=== PATIENT | male | born 1960 | race Caucasian/White ===

== ENCOUNTER 2024-02-09 02:15 | Emergency (ER) | payer OTHER, SELFPAY ==
[2024-02-09 02:16] VITALS: BP 203/109
--- NOTE | 2024-02-09 02:44 | ED.GENMED ---
History of Present Illness
<JOSE ARMANDO Fischer - Last Filed: 02/09/24 05:32>
General
Chief Complaint: Abdominal Pain
Source: patient and spouse
Exam Limitations: none
Time Seen by Provider: 02/09/24 02:31
Nursing documentation reviewed up to this point in time: agreed with
History of Present Illness
History of Present Illness:
Pt is a 63 y/o M with pmhx of kidney stones and paraesophageal hernia who presents with complaints of epigastric abdominal pain x3-4 hrs. The pain is rated a 5/10 in severity and is described as a constant dullness. There is no radiation of pain. He
has had 2-3 episodes of vomiting. He took tums at home but threw them up. The pt reported that he had eaten chicken parm at a sikh earlier that day and a frozen meal just prior to the onset of his pain. The pt was in obvious discomfort and was
unable to get comfortable. Denies back pain, fever, GOLDEN, SOB, hemoptysis, constipation, or diarrhea.
The pt has a pmhx of kidney stones over 10 years ago that he passed on his own. He reports that the symptoms that he has today might be similar but is unsure. The pt also reports that he has a history of multiple hernias. His last bowel movement was
earlier today.
Past History
<JOSE ARMANDO Fischer - Last Filed: 02/09/24 05:32>
Past History
ED Past Medical History: Other (Kidney stones)
ED Past Surgical History: Other (paraesophageal hernia repair)
Social History
Tobacco: Non-smoker
Alcohol: Daily
Drug: None
Personal:
Living: with family
Review of Systems
<JOSE ARMANDO Fischer - Last Filed: 02/09/24 05:32>
Review of Systems
Allergies reviewed?: Yes
Constitutional: Reports no symptoms
EENT: Reports no symptoms
Respiratory: Reports no symptoms
Cardiac: Reports no symptoms
ABD/GI: Reports abdominal pain, nausea and vomiting
: Reports no symptoms
Musculoskeletal: Reports no symptoms
Skin: Reports no symptoms
Neurological: Reports no symptoms
Endocrine: Reports no symptoms
Hematologic/Lymphatic: Reports no symptoms
Psychiatric: Reports no symptoms
Phy Exam
<JOSE ARMANDO Fischer - Last Filed: 02/09/24 05:32>
General Physical Exam
General Presentation: moderate distress
General age: appears stated age
General Skin: warm
General Habitus: normal
General Mental: alert
General Hydration: appears well hydrated
ENT Exam
ENT Exam: neck supple
Eye Exam
Eye Exam: cornea clear and conjunctiva normal
Cardiovascular Exam
Cardiovascular Exam: regular rate/rhythm and normal peripheral pulses
Pulmonary Exam
Pulmonary Exam: lungs clear and no respiratory distress
Gastrointestinal Exam
Gastrointestinal Exam: normal bowel sounds, distended, guarding and other (Guarding with Duran's. Negative rebound tenderness. Negative obturator sign. Negative Rovsing's sign. )
Palpation: left upper quadrant: Moderate tenderness, left lower quadrant: No tenderness, right upper quadrant: Moderate tenderness and right lower quadrant: No tenderness
Neurological Exam
Neurological Exam: alert, oriented x3, no motor deficits, normal reflexs, no sensory deficits and speech normal
Musculoskeletal Exam
Musculoskeletal Exam: full ROM and neuro vasc intact
Skin Exam
Skin Exam: normal color and warm/dry
Psychiatric Exam
Psychiatric Exam: normal mood/affect
Course
<JOSE ARMANDO Fischer - Last Filed: 02/09/24 05:32>
Orders/Labs/Results
Orders:
Orders
02/09/24 02:50
Electrocardiogram (*1) Urgent
Reason for Study: Abdominal Pain
EKG- Treatment ONCE
02/09/24 03:00
Complete Blood Count/With Diff Urgent
Comprehensive Metabolic Panel Urgent
Lipase Urgent
PTT Urgent
Prothrombin Time Urgent
Troponin I Urgent
Urinalysis Reflex To Culture Urgent
Date Specimen was Collected: 02/09/24
Time Specimen was Collected: 02:57
Abnormal Lab Results
02/09/24
03:00
RBC 4.67 L 10^6/uL
(4.70-6.10)
MCV 95.1 H fL
(80.0-94.0)
MCH 35.5 H pg
(27.0-31.0)
MCHC 37.4 H g/dL
(33.0-37.0)
Abs Immat Gran (auto) 0.1 H 10^3/uL
(0-0.05)
Absolute Monos (auto) 1.1 H 10^3/uL
(0.1-0.6)
Immature Gran % 0.6 H %
(0-0.5)
Monocytes % 13.6 H %
(1.7-9.3)
BUN 21 H mg/dl
(9-20)
Glucose 112 H mg/dl
(70-99)
Calcium 10.3 H mg/dl
(8.4-10.2)
02/09/24 03:00
02/09/24 03:00
Vital Signs
Initial and Last Documented VS:
Initial Vital Signs
Pulse Resp BP Pulse Ox
80 20 203/109 99
02/09/24 02:16 02/09/24 02:16 02/09/24 02:16 02/09/24 02:16
Last Documented Vital Signs
Temp Pulse Resp BP Pulse Ox
98.1 F 80 20 126/90 99
02/09/24 02:51 02/09/24 02:16 02/09/24 02:16 02/09/24 04:17 02/09/24 02:16
<Maldonado Bates, DO - Last Filed: 02/09/24 04:24>
Orders/Labs/Results
Orders:
Orders
02/09/24 02:50
Electrocardiogram (*1) Urgent
Reason for Study: Abdominal Pain
EKG- Treatment ONCE
02/09/24 03:00
Complete Blood Count/With Diff Urgent
Comprehensive Metabolic Panel Urgent
Lipase Urgent
PTT Urgent
Prothrombin Time Urgent
Troponin I Urgent
Urinalysis Reflex To Culture Urgent
Date Specimen was Collected: 02/09/24
Time Specimen was Collected: 02:57
Abnormal Lab Results
02/09/24
03:00
RBC 4.67 L 10^6/uL
(4.70-6.10)
MCV 95.1 H fL
(80.0-94.0)
MCH 35.5 H pg
(27.0-31.0)
MCHC 37.4 H g/dL
(33.0-37.0)
Abs Immat Gran (auto) 0.1 H 10^3/uL
(0-0.05)
Absolute Monos (auto) 1.1 H 10^3/uL
(0.1-0.6)
Immature Gran % 0.6 H %
(0-0.5)
Monocytes % 13.6 H %
(1.7-9.3)
BUN 21 H mg/dl
(9-20)
Glucose 112 H mg/dl
(70-99)
Calcium 10.3 H mg/dl
(8.4-10.2)
02/09/24 03:00
02/09/24 03:00
Vital Signs
Initial and Last Documented VS:
Initial Vital Signs
Pulse Resp BP Pulse Ox
80 20 203/109 99
02/09/24 02:16 02/09/24 02:16 02/09/24 02:16 02/09/24 02:16
Last Documented Vital Signs
Temp Pulse Resp BP Pulse Ox
98.1 F 80 20 126/90 99
02/09/24 02:51 02/09/24 02:16 02/09/24 02:16 02/09/24 04:17 02/09/24 02:16
<JOSE ARMANDO Fischer - Last Filed: 02/09/24 05:32>
MDM/Problems Addressed
Differential Diagnosis Includes:
Cholecystitis
Nephrolithiasis
Gastritis
<JOSE ARMANDO Fischer - Last Filed: 02/09/24 05:32>
*Critical Care Note
Total Time (30-74mins, 75-104mins- exclusive of procedures): Not Applicable
<Maldonado Bates DO - Last Filed: 02/09/24 04:24>
Update Note
Update Note:
02/09/2024 0421 AM: Shortly after my exam, patient stated that his symptoms resolved. I did order CT scan for further evaluation of his abdomen. Patient refused. He states that he has no chest pain or anginal equivalents. EKG was normal. Patient
does not wish to have any further testing at this point. He wishes to be discharged home. I did discuss the possibility of a missed diagnosis without a CT scan. Patient still wishes to be discharged home. We did discuss return to ER
instructions. He verbalized good understanding. Patient being discharged home in improved condition.
ED Attending Note
<JOSE ARMANDO Fischer - Last Filed: 02/09/24 05:32>
-
Portions of this chart may have been created with voice recognition software.� Occasional wrong word or��sound alike� substitutions may have occurred due to the inherent limitations of voice recognition software.
<Maldonado Bates DO - Last Filed: 02/09/24 04:24>
ED Attending Note
Patient seen and examined by attending physician: Yes
I performed the substantive portion of visit, reviewed & personally made and approve the management plan that is documented in note by myself or SOMMER.: Yes
ED Attending Note:
63-year-old male presents with upper abdominal pain that has been present for the last 4 to 5 hours. Patient states that at its worst the pain was 5 out of 10 and in the epigastrium. He states that vomiting seem to alleviate some of his pain.
Initially when the symptoms came on he took Tums but was unable to keep them down. Patient ate a frozen meal just prior to the onset of his symptoms. Patient does have a history of kidney stones but is unsure if this is similar pain. Patient
admits to drinking 2-3 beers per night during the week and a sixpack per night on the weekends. Patient was seen in conjunction with the PA student. I have reviewed and agree with the history and treatment plan presented. On my independent
physical exam, patient is awake, alert, and oriented x3 minimal to moderate acute epigastric pain. Heart is regular rate rhythm. No murmurs rubs or gallops. Lungs clear to auscultation bilaterally. Abdomen soft with minimal diffuse tenderness to
palpation. Negative McBurney's point tenderness. Negative Duran sign. Good bowel sounds x 4 quadrants. Skin is warm and dry. Patient moves all 4 extremities.
Will do lab work and reassess patient prior to ordering imaging.
Discharge Plan
Departure
Patient Disposition: Home (Routine Discharge)
Date of Disposition: 02/09/24
Time of Disposition: 04:21
Patient with high blood pressure during this ER visit?: Yes
Condition: Fair
Discharge Problem:
Abdominal pain
Instructions: Abdominal Pain, BLOOD PRESSURE
Referrals:
Carlyle Levin IV, MD [Family Provider] -
Activity Restrictions/Additional Instructions:
It was a pleasure meeting you and taking part in your care. We hope for your continued healing and wellness.
Please read discharge instructions in their entirety. However, they are for general education and may not describe your exact diagnosis at discharge. Information on your ER visit and medical conditions were discussed with you along with appropriate
follow up information...
If indicated, please take your medications as instructed and indicated on discharge paperwork.
Please schedule a follow up appointment as directed. Call to schedule an appointment
Please return to the emergency department with ANY change in, persisting, or worsening of symptoms. If any of your symptoms do not improve, or persist, or become more severe within 6-12 hours, please return to the emergency department for further
care.
Please return to the emergency department if you develop a headache, neck pain/stiffness, fever greater than 100.4F, chest pain, shortness of breath, persistent nausea, vomiting, slurred speech, difficulty walking, numbness/tingling, weakness, signs
of infection or any other symptoms that are worrisome to you.
If you have any questions or concerns please do not hesitate to call the Hospital at or E-mail me directly at [email or web address]
Interventions
Interventions:
*Risk Screen - Suicide Last Done: 02/09/24 02:16
*General Assessment Last Done: 02/09/24 02:16
*Neglect/Abuse Screening Last Done: 02/09/24 02:16
ED- Fall Risk Assessment Last Done: 02/09/24 03:30
*ED COVID-19 Vaccine History Last Done: 02/09/24 03:23
*Nursing Disposition Last Done: 02/09/24 04:51
SJ-Zbsmhy-Pcwdnvcqfi Assessment Last Done: 02/09/24 03:30
Discharge Date and Time
Discharge Date/Time: 02/09/24 04:52
Print Language: CITIZEN OF [place]
[2024-02-09 03:15] LABS: % Basophils 0.9 % (0-2); % Eosinophils 2.4 % (0-6); % Immature Granulocytes 0.6 % (0-0.5); % Lymphocytes 21.8 % (20.5-51.1); % Monocytes 13.6 % (1.7-9.3); % Neutrophils 60.7 % (42.2-75.2); Absolute Basophils 0.1 10^3/uL (0-0.2); Absolute Eosinophils 0.2 10^3/uL (0-0.7); Absolute Immature Granulocytes 0.1 10^3/uL (0-0.05); Absolute Lymphocytes 1.7 10^3/uL (1.2-3.4); Absolute Monocytes 1.1 10^3/uL (0.1-0.6); Absolute Neutrophils 4.8 10^3/uL (1.4-6.5); Hematocrit 44.4 % (39.0-52.0); Hemoglobin 16.6 g/dL (13.0-18.0); Mean Corp Hgb Conc. 37.4 g/dL (33.0-37.0); Mean Corpuscular Hgb 35.5 pg (27.0-31.0); Mean Corpuscular Volume 95.1 fL (80.0-94.0); Mean Platelet Volume 10.2 fL (7.4-10.4); Nucleated Red Blood Cells % 0 % (-); Platelet Count 202 10^3/uL (130-400); Red Blood Cell Count 4.67 10^6/uL (4.70-6.10); Red Cell Dist. Width 12.4 % (11.5-14.5); Urine Albumin Negative (Neg - Trace); Urine Bilirubin Negative (Negative); Urine Character Clear (Clear); Urine Color Yellow; Urine Glucose Negative (Negative); Urine Ketone Negative (Negative); Urine Leukocyte Negative (Negative); Urine Nitrite Negative (Negative); Urine Occult Blood Negative (Negative); Urine Urobilinogen Negative (Neg - 1+); Urine pH 6.5 (5.0-9.0); White Blood Cell Count 7.9 10^3/uL (4.8-10.8)
[2024-02-09 03:27] LABS: APTT 28.6 Sec (23.4-35.0); INR 1.04; PT 13.4 Sec (11.4-14.6)
[2024-02-09 03:29] LABS: ALT (SGPT) 46 U/L (0-50); AST (SGOT) 34 U/L (17-59); Albumin 4.5 g/dl (3.5-5.0); Alkaline Phosphatase 70 U/L (38-126); Blood Urea Nitrogen 21 mg/dl (9-20); Calcium 10.3 mg/dl (8.4-10.2); Carbon Dioxide 27 mmol/L (22-30); Chloride 102 mmol/L (98-107); Glucose 112 mg/dl (70-99); Lipase 112 U/L (23-300); Potassium 3.6 mmol/L (3.5-5.1); Sodium 142 mmol/L (135-145); Total Protein 6.4 g/dl (6.3-8.2); eGFR > 60.00
[2024-02-09 03:39] LABS: Troponin I < 0.012 ng/ml
[2024-02-09 04:17] VITALS: BP 126/90
--- NOTE | 2024-02-09 04:17 | EDRN ---
Updated patient on labs and plan for CT, patient reports he feels fine, no pain or complaints at this time, Dr. Bates aware and back in to see patient.
== END 2024-02-09 04:52 | disposition home or self-care (01) ==
LOC: EMR 02:15
PROVIDERS: EMERGENCY PHYSICIAN Student in an Organized Health Care Education/Training Program; FAMILY PHYSICIAN Family Medicine
DX: R10.13 Epigastric pain (principal); Z87.442 Personal history of urinary calculi
CPT/HCPCS: 99284; 80053; 81003; 83690; 84484; 85025; 85610; 85730; 93005

== ENCOUNTER 2024-02-17 05:42 | Day surgery (SDC) | payer OTHER, SELFPAY ==
[2024-02-17] VITALS (15 sets, daily range): BP systolic 109–175; BP diastolic 70–92; BMI 32.3
[2024-02-17 01:11] LABS: ALT (SGPT) 35 U/L (0-50); AST (SGOT) 33 U/L (17-59); Albumin 4.3 g/dl (3.5-5.0); Alkaline Phosphatase 70 U/L (38-126); Blood Urea Nitrogen 13 mg/dl (9-20); Carbon Dioxide 29 mmol/L (22-30); Chloride 99 mmol/L (98-107); Glucose 134 mg/dl (70-99); Lipase 77 U/L (23-300); Potassium 3.8 mmol/L (3.5-5.1); Sodium 139 mmol/L (135-145); Total Bilirubin 1.3 mg/dl (0.2-1.3); Total Protein 6.4 g/dl (6.3-8.2); eGFR > 60.00
[2024-02-17 01:13] LABS: % Basophils 0.3 % (0-2); % Eosinophils 0.5 % (0-6); % Immature Granulocytes 0.4 % (0-0.5); % Lymphocytes 6.1 % (20.5-51.1); % Monocytes 7.2 % (1.7-9.3); % Neutrophils 85.5 % (42.2-75.2); Absolute Eosinophils 0.1 10^3/uL (0-0.7); Absolute Lymphocytes 0.7 10^3/uL (1.2-3.4); Absolute Monocytes 0.8 10^3/uL (0.1-0.6); Absolute Neutrophils 9.5 10^3/uL (1.4-6.5); Hematocrit 41.3 % (39.0-52.0); Hemoglobin 15.4 g/dL (13.0-18.0); Mean Corp Hgb Conc. 37.3 g/dL (33.0-37.0); Mean Corpuscular Hgb 33.5 pg (27.0-31.0); Mean Corpuscular Volume 89.8 fL (80.0-94.0); Mean Platelet Volume 10.3 fL (7.4-10.4); Nucleated Red Blood Cells % 0 % (-); Platelet Count 233 10^3/uL (130-400)
--- NOTE | 2024-02-17 02:54 | ED.GENMED ---
History of Present Illness
<JOSE ARMANDO Flores - Last Filed: 02/17/24 04:23>
General
Chief Complaint: Abdominal Symptoms
Source: patient
Time Seen by Provider: 02/17/24 02:54
Nursing documentation reviewed up to this point in time: agreed with
History of Present Illness
History of Present Illness:
Patient is a 63 year old male with a PMH of a hiatal hernia and kidney stones presents to the ED with complaints of abdominal pain x 5 hours. Patient states a couple of hours after eating german fries and chicken he experienced a stabbing abdominal
pain. The pain is epigastric and was constant. He rated it a 9/10 on a pain scale and the pain does not radiate. Patient admits to nausea and vomiting. He vomited around 10 times throughout the night. He states it was undigested food and some
stomach acid but denies any blood. Once he got placed in a room here, the pain subsided and he is currently having no symptoms. He was here a week ago for the same exact symptoms, which also resolved spontaneously once he got into a room here.
Patient said its the same exact episode as last week but worse. He was discharged on 02/09/24 and said throughout the week he's been on a diet consisting of soup mac and cheese and other soft foods. He states the chicken and german fries were the
first 'real meal' he's had. Throughout the week he states he's been completely fine until tonight. Patient denies headache fever chest pain palpitations sob changes in bowel movements dysuria.
Patient has a PMH of HTN which he is on metoprolol and HCTZ for. He has no allergies. He admits to occasional drinking but no tobacco use. He had a paraesophageal hernia repair 5 years ago which was uncomplicated.
<Fannie Catherine DO - Last Filed: 02/17/24 06:11>
General
Nursing documentation reviewed up to this point in time: agreed with except (Disagree with surgical history. 1 previous hiatal hernia repair 5 years ago. He also has history of umbilical hernia repair and right inguinal hernia repair.)
Past History
<TristanJOSE ARMANDO Baca - Last Filed: 02/17/24 04:23>
Past History
ED Past Medical History: Other (Kidney stones)
ED Past Surgical History: Other (paraesophageal hernia repair)
Social History
Tobacco: Non-smoker
Alcohol: Daily
Drug: None
Personal:
Living: with family
Review of Systems
<TristanJOSE ARMANDO Baca - Last Filed: 02/17/24 04:23>
Review of Systems
Allergies reviewed?: Yes
Constitutional: Reports no symptoms
Respiratory: Reports no symptoms
Cardiac: Reports no symptoms
ABD/GI: Reports abdominal pain, nausea and vomiting
: Reports no symptoms
Neurological: Reports no symptoms
Phy Exam
<JOSE ARMANDO Flores - Last Filed: 02/17/24 04:23>
General Physical Exam
General Presentation: well appearing
General age: appears stated age
General Habitus: normal
General Mental: alert
Cardiovascular Exam
Cardiovascular Exam: regular rate/rhythm, no edema, no gallop, no JVD and no murmur
Pulmonary Exam
Pulmonary Exam: lungs clear, no respiratory distress, no rales, chest non tender, no crackles, no rhonchi, no stridor, no wheezing and no cough
Gastrointestinal Exam
Gastrointestinal Exam: normal bowel sounds, non tender, soft, no organomegaly, no pulsatile mass, non distended and no cva tenderness
Course
<JOSE ARMANDO Flores - Last Filed: 02/17/24 04:23>
Orders/Labs/Results
Orders:
Orders
02/17/24 00:33
Electrocardiogram (*1) Urgent
Reason for Study: Abdominal Pain
EKG- Treatment ONCE
IV Insert/Care/Rem.- Treatment PRN
02/17/24 00:45
Complete Blood Count/With Diff Urgent
Comprehensive Metabolic Panel Urgent
Lipase Urgent
02/17/24 03:42
CT Abd/pelvis W Iv Cont Urgent
Comment:
Reason For Exam: SEVERE GEN UPPER ABD PAIN W N/V
02/17/24 05:02
0.9% Sodium Chloride 1000 ml [Nss] 1,000 ml IV 250 mls/hr
CefoTEtan [Cefotan] 2,000 mg IV NOW STA
02/17/24 05:13
Sterile Water [Sterile Water For Injection] 10 ml .ROUTE .ST-MED ONE
02/17/24 05:31
Admit/Transfer Patient As Directed
Co-Sign Provider:
Level of Care: Observation services
Assign to:: Medical/Surgical
Physician / Group: [facility]/General Surgery
Diagnosis: cholecystitis, biliary colic
02/17/24 05:32
PRN Pain Medication Management As Directed
May give lesser potent ordered pain med per pt: Yes
preference::
Protocol:: Medication orders for pain may be administered in a
manner that supports deferring to patient preference
when the pt is:
- Requesting an ordered lesser potent pain medication.
Least to most potent pain medications are defined
as: acetaminophen < NSAID < tramadol < opioids
(morphine, oxycodone, hydromorphone).
- Requesting a lesser dose of the same medication IF
ORDERED.
- Requesting a less intrusive route of administration
if both routes are prescribed by the provider (PO <
IV).
02/17/24 05:33
Code Status As Directed
Resuscitation Status: Full Code
02/17/24 06:00
Flush (0.9% Sodium Chloride) [Flush (Nss)] See Dose Instructions IV PER PROTOCOL
Abnormal Lab Results
02/17/24
00:45
WBC 11.0 H 10^3/uL
(4.8-10.8)
RBC 4.60 L 10^6/uL
(4.70-6.10)
MCH 33.5 H pg
(27.0-31.0)
MCHC 37.3 H g/dL
(33.0-37.0)
Absolute Neuts (auto) 9.5 H 10^3/uL
(1.4-6.5)
Absolute Lymphs (auto) 0.7 L 10^3/uL
(1.2-3.4)
Absolute Monos (auto) 0.8 H 10^3/uL
(0.1-0.6)
Neutrophils % 85.5 H %
(42.2-75.2)
Lymphocytes % 6.1 L %
(20.5-51.1)
Glucose 134 H mg/dl
(70-99)
02/17/24 00:45
02/17/24 00:45
Vital Signs
Initial and Last Documented VS:
Initial Vital Signs
Pulse Resp BP Pulse Ox
66 20 168/92 97
02/17/24 00:00 02/17/24 00:00 02/17/24 00:00 02/17/24 00:00
Last Documented Vital Signs
Temp Pulse Resp BP Pulse Ox
98.0 F 63 16 109/70 96
02/17/24 03:06 02/17/24 05:15 02/17/24 05:15 02/17/24 05:15 02/17/24 05:15
Kristielt;Fannie Catherine, DO - Last Filed: 02/17/24 06:11>
Orders/Labs/Results
Orders:
Orders
02/17/24 00:33
Electrocardiogram (*1) Urgent
Reason for Study: Abdominal Pain
EKG- Treatment ONCE
IV Insert/Care/Rem.- Treatment PRN
02/17/24 00:45
Complete Blood Count/With Diff Urgent
Comprehensive Metabolic Panel Urgent
Lipase Urgent
02/17/24 03:42
CT Abd/pelvis W Iv Cont Urgent
Comment:
Reason For Exam: SEVERE GEN UPPER ABD PAIN W N/V
02/17/24 05:02
0.9% Sodium Chloride 1000 ml [Nss] 1,000 ml IV 250 mls/hr
CefoTEtan [Cefotan] 2,000 mg IV NOW STA
02/17/24 05:13
Sterile Water [Sterile Water For Injection] 10 ml .ROUTE .STK-MED ONE
02/17/24 05:31
Admit/Transfer Patient As Directed
Co-Sign Provider:
Level of Care: Observation services
Assign to:: Medical/Surgical
Physician / Group: [facility]/General Surgery
Diagnosis: cholecystitis, biliary colic
02/17/24 05:32
PRN Pain Medication Management As Directed
May give lesser potent ordered pain med per pt: Yes
preference::
Protocol:: Medication orders for pain may be administered in a
manner that supports deferring to patient preference
when the pt is:
- Requesting an ordered lesser potent pain medication.
Least to most potent pain medications are defined
as: acetaminophen < NSAID < tramadol < opioids
(morphine, oxycodone, hydromorphone).
- Requesting a lesser dose of the same medication IF
ORDERED.
- Requesting a less intrusive route of administration
if both routes are prescribed by the provider (PO <
IV).
02/17/24 05:33
Code Status As Directed
Resuscitation Status: Full Code
02/17/24 06:00
Flush (0.9% Sodium Chloride) [Flush (Nss)] See Dose Instructions IV PER PROTOCOL
Abnormal Lab Results
02/17/24
00:45
WBC 11.0 H 10^3/uL
(4.8-10.8)
RBC 4.60 L 10^6/uL
(4.70-6.10)
MCH 33.5 H pg
(27.0-31.0)
MCHC 37.3 H g/dL
(33.0-37.0)
Absolute Neuts (auto) 9.5 H 10^3/uL
(1.4-6.5)
Absolute Lymphs (auto) 0.7 L 10^3/uL
(1.2-3.4)
Absolute Monos (auto) 0.8 H 10^3/uL
(0.1-0.6)
Neutrophils % 85.5 H %
(42.2-75.2)
Lymphocytes % 6.1 L %
(20.5-51.1)
Glucose 134 H mg/dl
(70-99)
02/17/24 00:45
02/17/24 00:45
Vital Signs
Initial and Last Documented VS:
Initial Vital Signs
Pulse Resp BP Pulse Ox
66 20 168/92 97
02/17/24 00:00 02/17/24 00:00 02/17/24 00:00 02/17/24 00:00
Last Documented Vital Signs
Temp Pulse Resp BP Pulse Ox
98.0 F 63 16 109/70 96
02/17/24 03:06 02/17/24 05:15 02/17/24 05:15 02/17/24 05:15 02/17/24 05:15
Kristielt;JOSE ARMANDO Flores - Last Filed: 02/17/24 04:23>
MDM/Problems Addressed
Differential Diagnosis Includes:
gastroenteritis, gastritis, SBO, pancreatitis, cholecystitis, cholelithiasis, PUD
MDM/Problems Addressed:
pain is resolved, high white count, order CT 422a CT came back gall bladder inflammation, biliary colic consult surgery
<JOSE ARMANDO Flores - Last Filed: 02/17/24 04:23>
*Critical Care Note
Total Time (30-74mins, 75-104mins- exclusive of procedures): Not Applicable
<Fannie Catherine DO - Last Filed: 02/17/24 06:11>
*Radiology
Radiology exam reviewed: radiology read reviewed
*Pulse Oximetry
Patient hypoxic: no
*EKG
Interpreted by ED Provider?: Yes
Interpretation: normal
Comparison EKG: no changes (Unchanged from previous February 09, 2024)
Rate: bradycardiac
Rhythm: sinus
[place]: normal axis
Interval: normal interval
QRS Pattern: normal QRS
Ischemia: no ischemia
ED Attending Note
<JOSE ARMANDO Flores - Last Filed: 02/17/24 04:23>
-
Portions of this chart may have been created with voice recognition software.� Occasional wrong word or��sound alike� substitutions may have occurred due to the inherent limitations of voice recognition software.
<DO Tal Gutierrez Last Filed: 02/17/24 06:11>
ED Attending Note
Patient seen and examined by attending physician: Yes
I performed the substantive portion of visit, reviewed & personally made and approve the management plan that is documented in note by myself or SOMMER.: Yes
ED Attending Note:
This is a 63-year-old gentleman with history of hypertension, hyperlipidemia, rheumatoid arthritis, kidney stones who complains of severe generalized upper abdominal pain associated with nausea and vomiting that began 2 hours after dinner which
consisted of chicken and potatoes. He had very similar episode of abdominal pain 1 week ago where he presented to this ED. Pain persisted for approximately 4 hours then resolved. Labs were unremarkable. Imaging was considered but patient elected
to go home. Prior to 1 week ago no history of similar episodes of pain.
He does have prior history of hiatal hernia repair 5 years ago without complications. He also has history of right inguinal hernia repair and umbilical hernia repair in the remote past.
Pain has markedly improved but has not completely resolved.
No other associated symptoms.
GENERAL: 63-year-old gentleman appears his stated age, bright and alert, pleasant, appears in no acute distress.
EYE: . anicteric
NECK: Supple, nontender, no meningismus, no significant adenopathy.
ENT: oral mucosa is moist. No rhinorrhea.
CARDIAC: Regular rate and rhythm. no murmur.
LUNGS: Clear breath sounds bilaterally, no acute respiratory distress, no wheezes/rales/rhonchi
ABDOMEN: Rotund, soft, nondistended, mild tenderness epigastric region as well as right upper quadrant, no r/g, no cvat. normoactive BS.
NEUROLOGICAL: Alert and oriented x3, no focal neuro deficits. Gait is steady.
SKIN: Warm and dry, normal color, skin intact. No rash.
MUSCULOSKELETAL: No C/C/E. peripheral pulses are full and equal b/l. No palpable tenderness.
PSYCH: Normal and appropriate interaction.
Concern for acute biliary colic, cholecystitis, pancreatitis, small bowel obstruction, recurrent hiatal hernia.
Patient is much more comfortable but not completely pain-free with some tenderness epigastric region as well as right upper quadrant.
Mildly elevated white blood cell count which is new compared to 1 week ago. LFTs remain within normal limits. Normal lipase.
Will check CT abdomen pelvis.
02/17/2024 0500 AM
CAT scan shows distended inflamed gallbladder with large stone wedged in the neck, Pericholecystic fluid consistent with acute cholecystitis.
Case discussed with general surgery, will admit to their service. Will initiate IV antibiotics, IV fluids.
Discharge Plan
Departure
Patient Disposition: Admit
Date of Disposition: 02/17/24
Time of Disposition: 05:01
Admit to: Med/Surg
Admit to doctor: Maxwell
Presentation/result/management discussed w/ accepting MD/DO: gen surgery
Condition: Fair
Discharge Problem:
Acute calculous cholecystitis
Interventions
Interventions:
*Risk Screen - Suicide Last Done: 02/17/24 00:00
*General Assessment Last Done: 02/17/24 00:00
*Neglect/Abuse Screening Last Done: 02/17/24 00:00
ED- Fall Risk Assessment Last Done: 02/17/24 03:54
*ED COVID-19 Vaccine History Last Done: 02/17/24 03:54
HB-Bwsphv-Ojtsmoqjde Assessment Last Done: 02/17/24 03:54
[2024-02-17] MEDS: CEFOTAN 2000 MG IV ×2 (05:16→18:39)
[2024-02-17] MEDS: NSS 1000 IV (05:20)
--- NOTE | 2024-02-17 05:36 | HPS.HSE ---
Family Physician
-
Family Physician: Carlyle Levin IV, MD
Chief Complaint
-
abdominal pain nausea and vomiting
History of Present Illness
This is a very pleasant 63 year old male experiencing about 12 hours worth of intractable n/v and abdominal pain. He came to the ED last week with similar complaints which resolved on its own and he was discharged. He was offered a CT scan of his
abdomen at that time but declined because he was feeling so well. He initially believed it was food poisoning then and was being careful with what he ate all week but decided to upgrade his diet with chicken and danish fries. The same symptoms
returned and he came back for further evaluation tonight. Again, he felt better without intervention (he was doubled over in the waiting room for [address] scan tonight). PMH includes HTN, Rheumatoid arthritis, and hyperlipidemia.
Medical History
Past Medical History
Past Medical History: Reports HTN, Hypercholesterolemia and Other (rheumatoid arthritis)
Additional Past Medical History:
renal calculi
Past Surgical History: Reports Other (umbilical hernia, inguinal and paraesophageal hernia repairs. )
Social History
Tobacco: Non-smoker
Alcohol: Daily
Drug: None
Personal:
Living: With Family
Employment: Employed
Family History
Family History: Not pertinent
Allergies / Home Medications
Allergies reflects when Allergies were last updated in [employer].
Home Medications with original date entered in [employer]
Allergy/Medication List:
Allergies
Allergy/AdvReac Type Severity Reaction Status Date / Time
No Known Allergies Allergy Verified 02/16/24 23:59
If Other, explain: pending nursing completion
Review of Systems
-
Constitutional: Reports No Symptoms
EENT: Reports No Symptoms
Respiratory: Reports No Symptoms
Cardiac: Reports No Symptoms
Abdomen/GI: Reports Abdominal Pain
: Reports No Symptoms
Musculoskeletal: Reports No Symptoms
Skin: Reports No Symptoms
Neurological: Reports No Symptoms
Endocrine: Reports No Symptoms
Hematologic/Lymphatic: Reports No Symptoms
Psych: Reports No Symptoms
Physical Exam
Vital Signs
Vital Signs
Temp Pulse Resp BP Pulse Ox
98.0 F 63 16 109/70 96
02/17/24 03:06 02/17/24 05:15 02/17/24 05:15 02/17/24 05:15 02/17/24 05:15
Physical Exam
General: Well Developed, Well Nourished, No Apparent Distress and Comfortable
HEENT: NormoCephalic, Anicteric, Moist mucous membranes and Atraumatic
Respiratory: Clear and Non Labored Respirations
Cardiac: S1/S2 and Regular Rhythm
Breast: Deferred by me
GI: Soft and Normal Bowel Sounds
Rectal: Deferred by Provider
Genito-urinary: Clear Urine
Musculoskeletal: No Clubbing, No Cyanosis and No Edema
Skin: Dry
Neuro: Awake, Alert, AO x 3 and No Motor Deficits
Hematologic/Lymphatic: No Lymphadenopathy
Psych: Calm
Laboratory Results
-
02/17/24 00:45
02/17/24 00:45
Laboratory Results
Total Bilirubin 1.3 mg/dl (0.2-1.3) 02/17/24 00:45
AST 33 U/L (17-59) 02/17/24 00:45
ALT 35 U/L (0-50) 02/17/24 00:45
Alkaline Phosphatase 70 U/L (38-126) 02/17/24 00:45
Lipase 77 U/L (23-300) 02/17/24 00:45
Data Reviewed
-
CT Scan: Report Reviewed by me
Lab Data: Labs Reviewed by me
Old Records: Reviewed
Impression/Plan
-
IMPRESSION: acute cholecystitis with biliary colic
PLAN: This is a very pleasant 63 year old male experiencing about 12 hours worth of intractable n/v and abdominal pain. He came to the ED last week with similar complaints which resolved on its own and he was discharged. He was offered a CT scan of
his abdomen at that time but declined because he was feeling so well. He initially believed it was food poisoning then and was being careful with what he ate all week but decided to upgrade his diet with chicken and danish fries. The same symptoms
returned and he came back for further evaluation tonight. Again, he felt better without intervention (he was doubled over in the waiting room for [address] scan tonight). PMH includes HTN, Rheumatoid arthritis, renal calculi, and
hyperlipidemia.
*Acute cholecystitis: NPO, Cefotan IV. Morphine for pain, Zofran for n/v
*HTN: Trend. Resume antihypertensives when taking po
*Leukocytosis: Trend WBCs and temperature
*DVT prophylaxis: TEDS, SCDS, oob ad leo.
*Disposition: FC . General surgery service
--- NOTE | 2024-02-17 10:37 | CON.GS ---
Medical History
-
Chief Complaint: RUQ pain
History of Present Illness:
Patient is a 63 yo M with a PMH of obesity, HTN, HLD, RA (on methotrexate), nephrolithiasis, s/p umbilical hernia repair with mesh, s/p RIH inguinal hernia repair with mesh, and s/p laparoscopic paraesophageal hernia repair who presents with
persistent RUQ abdominal pain. Mr. Gibson states that his symptoms began acutely last Friday on 02/09/2024. He describes intense RUQ abdominal pain. He initially presented to the ER at that time, however, his symptoms improved prompting discharge
without further workup. He reports that he has done well with no persistent pain over the past week following a low-fat diet. Yesterday evening he had chicken fingers and fries prompting recurrence of his pain. Currently states that his pain is
improved. He denies any fevers or chills. Associated nausea and vomiting. He denies any jaundice, pale stools, or tea colored urine.
Past Medical History
Past Medical History: HTN, Hypercholesterolemia and Other (RA, nephrolithiasis)
Past Surgical History: Hernia Repair (Open umbilical hernia repair with mesh, RIGHT inguinal hernia repair with mesh, laparoscopic paraesophageal hernia repair)
Social History
Tobacco: Non-Smoker
Alcohol: Binge Drinker
Drug: None
Personal:
Living: With Family
Employment: Employed
Family History
Family History: Reviewed & Noncontributory
Allergies / Home Medications
Allergy/AdvReac Type Severity Reaction Status Date / Time
No Known Allergies Allergy Verified 02/16/24 23:59
�Medication �Instructions �Recorded �Confirmed �Type
atorvastatin 10 mg tablet (Lipitor) 10 mg PO DAILY 02/17/24 02/17/24 History
cyanocobalamin (vitamin B-12) 500 500 mcg PO DAILY 02/17/24 02/17/24 History
mcg tablet
folic acid 1 mg tablet 1 mg PO DAILY 02/17/24 02/17/24 History
hydrochlorothiazide 25 mg tablet 25 mg PO DAILY 02/17/24 02/17/24 History
methotrexate sodium 2.5 mg tablet 15 mg PO MO 02/17/24 02/17/24 History
metoprolol succinate 25 mg 75 mg PO DAILY 02/17/24 02/17/24 History
tablet,extended release 24 hr
(Toprol XL)
Review of Systems
-
A 10 point review of systems was completed, and was negative except as per HPI.
Physical Exam
Vital Signs
Temp Pulse Resp BP Pulse Ox
98 F 63 16 133/80 96
02/17/24 09:11 02/17/24 09:11 02/17/24 09:11 02/17/24 09:11 02/17/24 09:11
02/16/24 02/17/24 02/18/24
06:59 06:59 06:59
Actual Weight 99 kg
Body Mass Index (BMI) 32.3
Lab Results
02/17/24 00:45
02/17/24 00:45
WBC 11.0 10^3/uL (4.8-10.8) H 02/17/24 00:45
Hgb 15.4 g/dL (13.0-18.0) 02/17/24 00:45
Hct 41.3 % (39.0-52.0) 02/17/24 00:45
Plt Count 233 10^3/uL (130-400) 02/17/24 00:45
Abs Immat Gran (auto) 0.0 10^3/uL (0-0.05) 02/17/24 00:45
Neutrophils % 85.5 % (42.2-75.2) H 02/17/24 00:45
Physical Exam
General: Well Developed, Well Nourished and No Apparent Distress
HEENT: Normocephalic and Anicteric
Respiratory: Non Labored Respirations
Cardiac: Regular Rhythm
GI: Soft, Non Distended, Tender (Minimal and RUQ, negative Duran sign), Incisions (Well-healed) and Other (Nonperitoneal)
Musculoskeletal: No Edema
Skin: Warm and Dry
Neuro: Nonfocal/Grossly Intact
Data Reviewed
-
CT Scan: Image Personally Visualized and interpreted
Labs: Labs Reviewed by me
Old Records: Reviewed
Assessment / Plan
-
Patient is a 63 yo M p/w persistent severe biliary colic versus acute cholecystitis
The natural history and pathophysiology of biliary and stone disease was discussed. Anatomy was reviewed. Workup thus far including labs and imaging was reviewed. Options for management including medical management with a low-fat diet versus
surgical management cholecystectomy were considered and discussed. He has recently failed outpatient management. Recommend and plan for cholecystectomy.
Plan for laparoscopic cholecystectomy with possible cholangiogram. The procedure itself, as well as the risks, benefits, and alternatives was discussed. Specifically, we discussed the risks of bleeding, infection, injury to surrounding structures
(bowel, bile ducts), CBD injury, need for open procedure. Typical postprocedure recovery was discussed. All questions answered. Consent signed.
-- Laparoscopic cholecystectomy with possible cholangiogram
-- NPO, IVF
-- Antibiotics: Zosyn
-- Pain control: Tylenol and IV Dilaudid as needed
-- Admit postoperatively
--- NOTE | 2024-02-17 10:45 | W.SUR.PREOP ---
Pre-Operative Surgical Note
-
I have examined this patient prior to the performance of the scheduled procedure.
The patient's condition is unchanged from the time of the current History and
Physical and the patient is able to undergo the scheduled procedure.
--- NOTE | 2024-02-17 15:41 | W.IMMPOSTOP ---
Addendum entered and electronically signed by Jesus Manuel Chu MD 02/17/24 16:03:
[facility]# [id number]
Original Note:
Surgical Immed Post Op Note
-
Primary Surgeon: Vlad
Assisting Surgeon: Maxwell
Pre-op Diagnosis: Acute cholecystitis
Post-op Diagnosis: Acute cholecystitis
Procedure Performed: Laparoscopic cholecystectomy with IOC
Anesthesia Type: General
Specimen / Cultures:
1. Gallbladder
Estimated Blood Loss: 23 cc
Complications: None
Operative Findings:
1. Severe acute on chronic inflammation, large stones impacted at infundibulum and cystic duct neck
2. Anterior and posterior artery identified and clipped, clear visualization of cystic duct entering into the infundibulum
3. IOC with anatomy confirmed and no evidence of any filling defects
4. Duct taken with Endoloop
5. 19 Fr Gumaro drain into operative field
--- NOTE | 2024-02-17 18:00 | PTCARENOTE ---
Pt arrived to 2S in bed. Full assessment completed. Abdominal lap sites C/D/I, glued and MILTON. SHANE drain site clean and intact, no output noted. Pt educated on low cholesterol diet. Nasal cannula maintained. Bed locked and in the lowest position,
safety maintained. Oriented to room and call ram, at bedside.
[2024-02-17] MEDS: STERILE WATER FOR INJECTION 10 ML IV (18:39)
[2024-02-17] MEDS: NORMOSOL-R/PLASMALYTE-A 1000 IV (19:05)
[2024-02-18] MEDS: NORMOSOL-R/PLASMALYTE-A 1000 IV (01:54)
[2024-02-18 03:27] VITALS: BP 127/67
[2024-02-18] MEDS: CEFOTAN 2000 MG IV (05:25)
[2024-02-18] MEDS: STERILE WATER FOR INJECTION 10 ML IV (05:25)
[2024-02-18 06:03] LABS: Hematocrit 38.2 % (39.0-52.0); Hemoglobin 14.2 g/dL (13.0-18.0); Mean Corp Hgb Conc. 37.2 g/dL (33.0-37.0); Mean Corpuscular Hgb 33.9 pg (27.0-31.0); Mean Corpuscular Volume 91.2 fL (80.0-94.0); Mean Platelet Volume 10.3 fL (7.4-10.4); Platelet Count 244 10^3/uL (130-400); Red Blood Cell Count 4.19 10^6/uL (4.70-6.10); Red Cell Dist. Width 11.9 % (11.5-14.5); White Blood Cell Count 11.4 10^3/uL (4.8-10.8)
[2024-02-18 06:31] LABS: ALT (SGPT) 52 U/L (0-50); AST (SGOT) 51 U/L (17-59); Albumin 3.5 g/dl (3.5-5.0); Alkaline Phosphatase 37 U/L (38-126); Blood Urea Nitrogen 11 mg/dl (9-20); Calcium 8.6 mg/dl (8.4-10.2); Carbon Dioxide 26 mmol/L (22-30); Chloride 102 mmol/L (98-107); Estimated Creatinine Clearance 100 ml/min; Glucose 113 mg/dl (70-99); Potassium 4.6 mmol/L (3.5-5.1); Sodium 139 mmol/L (135-145); Total Bilirubin 0.8 mg/dl (0.2-1.3); Total Protein 5.8 g/dl (6.3-8.2); eGFR > 60.00
[2024-02-18 07:00] VITALS: BP 133/70
[2024-02-18] MEDS: TOPROL XL 75 MG PO (08:16)
[2024-02-18] MEDS: LIPITOR 10 MG PO (08:16)
[2024-02-18] MEDS: ORETIC 25 MG PO (08:17)
--- NOTE | 2024-02-18 09:16 | W.PN.GS2 ---
Today's Communication / Plan
-
-- DC today
Assessment / Plan
-
Patient is a 63 yo M POD#1 s/p laparoscopic cholecystectomy with IOC
AVSS
Mild reactive leukocytosis, mild transaminitis due to liver manipulation, normal bilirubin, stable hemoglobin
Recovering well. No major postoperative concerns. SHANE outputs reassuring; removed. Okay for discharge from surgical perspective.
-- LFD
-- Pain control: Tylenol, Toradol, Oxycodone
-- HLIV
-- Home meds
-- DVT: Lovenox
-- SHANE removed
-- DC today
Subjective Data
-
Date of Service: February 18, 2024
Major complaints. Slight soreness with activities. No nausea or vomiting. No fevers. Voiding. Minimal ambulation.
Objective Data
-
Intake and Output
02/17/24 02/18/24 02/19/24
06:59 06:59 06:59
Intake Total 2850 / 2850
Output Total
Balance 2820 / 2820 -
Intake:
Oral fluids 1200 / 1200
IV fluids (Total) 1650 / 1650
Normosol 450 / 450
Output:
Drain Output (Total)
Right Lower Abdomen Leon-
Montoya
Other:
Number of approximated LARGE 3
amounts of urine
Vital Signs
Temp Pulse Resp BP Pulse Ox
97.7 F 70 18 133/70 98
02/18/24 07:00 02/18/24 08:17 02/18/24 07:00 02/18/24 08:17 02/18/24 07:00
Lab Results
02/18/24 04:40
02/18/24 04:40
Calcium 8.6 mg/dl (8.4-10.2) 02/18/24 04:40
Total Bilirubin 0.8 mg/dl (0.2-1.3) 02/18/24 04:40
AST 51 U/L (17-59) 02/18/24 04:40
ALT 52 U/L (0-50) H 02/18/24 04:40
Alkaline Phosphatase 37 U/L (38-126) L 02/18/24 04:40
Total Protein 5.8 g/dl (6.3-8.2) L 02/18/24 04:40
Albumin 3.5 g/dl (3.5-5.0) 02/18/24 04:40
Physical Exam
-
Gen: NAD
Abd: soft, mild tenderness, ND, non-peritoneal, incisions c/d/i - no erythema, ecchymosis or drainage, SHANE serosang, non-bilious
--- NOTE | 2024-02-18 09:20 | W.DS.TRANS ---
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
-
Discharge Instructions:
Discharge Diagnosis/Procedures Laparoscopic cholecystectomy with cholangiogram
Diet Low Fat
Activity No strenuous activity
Additional Activity No heavy lifting (>20 lbs) or strenuous
activities for 2 weeks postoperatively
Driving Restrictions No driving if to sore or taking narcotics
Bathing Restrictions OK to Shower
Wound Care Keep incisions clean and dry. Glue will flake
off in 2 to 3 weeks. Stitches will dissolve.
Cover all drain site with dry gauze as needed
for any drainage.
Instructions:
Stand-Alone Forms:
Changes to Home Medications: Yes
Discharge Medications:
DC Medications w/original date entered in [employer]
atorvastatin 10 mg tablet (Lipitor) 10 mg PO DAILY High Cholesterol 02/17/24
cyanocobalamin (vitamin B-12) 500 mcg tablet 500 mcg PO DAILY Supplement 02/17/24
folic acid 1 mg tablet 1 mg PO DAILY Supplement 02/17/24
hydrochlorothiazide 25 mg tablet 25 mg PO DAILY Fluid Retention/Swelling 02/17/24
methotrexate sodium 2.5 mg tablet 15 mg PO MO RHEUMATOID ARTHRITIS 02/17/24
metoprolol succinate 25 mg tablet,extended release 24 hr (Toprol XL) 75 mg PO DAILY 02/17/24
acetaminophen 325 mg tablet 650 mg (2 x 325 mg) PO Q4HPRN PRN mild pain #1 tab 02/18/24
ibuprofen 200 mg tablet 400 - 600 mg (2 - 3 x 200 mg) PO Q6HPRN PRN moderate pain #1 tab 02/18/24
oxycodone 5 mg tablet 5 mg PO Q4HPRN PRN breakthrough/severe pain #10 tabs 02/18/24
Home Medication Changes
Pending Results: No
--- NOTE | 2024-02-18 10:23 | CM ---
Met with pt at bedside
Pt reports he lives with his in a 2 story townhouse with his ; no steps to enter, 12 steps to 2nd fl
Independent, working FT, drives at baseline
DME - crutches, rolling walker
SNF/HH - no past hx
Has ride at discharge
PCP - Carlyle Levin
Pharm - [facility]
Discussed obs status. Given letter
Plan - anticipate home no needs
[2024-02-18 11:00] VITALS: BP 148/71
[2024-02-18] MEDS: AFLURIA (36 mos+) 2024-2025 FORMULA 0.5 ML IM (11:32)
== END 2024-02-18 12:00 | disposition home or self-care (01) ==
LOC: PACU 05:42
PROVIDERS: Surgery; ATTENDING PHYSICIAN Surgery; EMERGENCY PHYSICIAN Emergency Medicine; FAMILY PHYSICIAN Family Medicine
DX: K80.10 Calculus of gallbladder with chronic cholecystitis without obstruction (principal); K44.9 Diaphragmatic hernia without obstruction or gangrene; R10.13 Epigastric pain; M06.9 Rheumatoid arthritis, unspecified; E78.00 Pure hypercholesterolemia, unspecified; E78.5 Hyperlipidemia, unspecified; N40.0 Benign prostatic hyperplasia without lower urinary tract symptoms; R00.1 Bradycardia, unspecified; R74.01 Elevation of levels of liver transaminase levels; R11.2 Nausea with vomiting, unspecified; I10 Essential (primary) hypertension; Z87.442 Personal history of urinary calculi; Z79.631 Long term (current) use of antimetabolite agent; E66.9 Obesity, unspecified; Z68.32 Body mass index [BMI] 32.0-32.9, adult; Z23 Encounter for immunization
CPT/HCPCS: 47563; 88304; 74177; 74300; 76000; 80053; 83690; 85025; 85027; 90686; 93005; 96374; 99285; A4300; G0008; G0378; Q9967

== ENCOUNTER 2024-06-07 21:41 | Emergency (ER) | payer OTHER, SELFPAY ==
[2024-06-07 21:49] VITALS: BP 166/96
[2024-06-07 22:32] VITALS: BMI 31.9
[2024-06-07 22:49] LABS: % Basophils 0.5 % (0-2); % Eosinophils 1.9 % (0-6); % Immature Granulocytes 0.2 % (0-0.5); % Lymphocytes 11.2 % (20.5-51.1); % Neutrophils 78.2 % (42.2-75.2); Absolute Eosinophils 0.2 10^3/uL (0-0.7); Absolute Lymphocytes 0.9 10^3/uL (1.2-3.4); Absolute Monocytes 0.7 10^3/uL (0.1-0.6); Absolute Neutrophils 6.6 10^3/uL (1.4-6.5); Hematocrit 43.1 % (39.0-52.0); Hemoglobin 15.7 g/dL (13.0-18.0); Mean Corp Hgb Conc. 36.4 g/dL (33.0-37.0); Mean Corpuscular Hgb 33.2 pg (27.0-31.0); Mean Corpuscular Volume 91.1 fL (80.0-94.0); Mean Platelet Volume 10.2 fL (7.4-10.4); Nucleated Red Blood Cells % 0 % (-); Platelet Count 188 10^3/uL (130-400); Red Blood Cell Count 4.73 10^6/uL (4.70-6.10); Red Cell Dist. Width 12.9 % (11.5-14.5); White Blood Cell Count 8.4 10^3/uL (4.8-10.8)
[2024-06-07 22:58] LABS: Urine Albumin Negative (Neg - Trace); Urine Bilirubin Negative (Negative); Urine Character Clear (Clear); Urine Color Yellow; Urine Glucose Negative (Negative); Urine Ketone Negative (Negative); Urine Leukocyte Negative (Negative); Urine Nitrite Negative (Negative); Urine Occult Blood 1+ (Negative); Urine Urobilinogen Negative (Neg - 1+); Urine pH 6.5 (5.0-9.0)
--- NOTE | 2024-06-07 23:04 | ED.GENMED ---
History of Present Illness
<ALEM Larson - Last Filed: 06/08/24 02:17>
General
Chief Complaint: Flank Pain
Source: patient
Exam Limitations: none
Time Seen by Provider: 06/07/24 22:53
History of Present Illness
History of Present Illness:
This is a 64 year old male that comes in with c/o Excruciating left flank pain. States that he was vomited at least 6 times and his pain was a 10/10. State that he was on the floor in the triage room due to the pain. States that this was going on
for 2 hours. States that it started to subside after he left triage. States that he was sweating, nausea, vomiting and had pressure when he went to urinate. Denies any fever, chills, chest pain, SOB, abd pain, diarrhea, headache, dizziness, urinary
burning.
Past History
<ALEM Larson - Last Filed: 06/08/24 02:17>
Past History
ED Past Medical History: HTN, Hypercholesterolemia and Other (Kidney stones)
ED Past Surgical History: Cholecystectomy, Orthopedic (Right shoulder surgery patient states 2, Right knee surgery 2, Left knee surgery , Facial reconstruction ) and Other (Hiatal hernia repair X 3, Abd hernia's X 2)
Social History
Tobacco: Non-smoker
Alcohol: Occasional
Drug: None
Personal:
Living: with family
Review of Systems
<ALEM Larson - Last Filed: 06/08/24 02:17>
Review of Systems
All Other Systems: ROS reviewed and negative except as documented in HPI and ROS
Constitutional: Reports no symptoms; Denies fever or chills
EENT: Reports no symptoms
Respiratory: Reports no symptoms; Denies cough or trouble breathing
Cardiac: Reports no symptoms; Denies chest pain
ABD/GI: Reports nausea and vomiting; Denies abdominal pain or diarrhea
: Reports flank pain (Left sided) and other (Pressure with urination); Denies dysuria, frequency or urgency
Musculoskeletal: Reports no symptoms
Skin: Reports no symptoms
Neurological: Reports no symptoms; Denies dizzy or headache
Psychiatric: Reports no symptoms
Phy Exam
<ALEM Larson - Last Filed: 06/08/24 02:17>
General Physical Exam
General Presentation: well appearing and no apparent distress
General age: appears stated age
General Skin: warm and dry
General Habitus: normal
General Mental: alert
General Hydration: appears well hydrated
ENT Exam
ENT Exam: TM's normal, pharynx normal and neck supple
Eye Exam
Eye Exam: EOMI
Cardiovascular Exam
Cardiovascular Exam: regular rate/rhythm, no edema, no murmur and normal peripheral pulses
Pulmonary Exam
Pulmonary Exam: lungs clear, no respiratory distress, no rales, chest non tender, no crackles, no rhonchi, no wheezing and no cough
Gastrointestinal Exam
Gastrointestinal Exam: normal bowel sounds, non tender, soft, no organomegaly, no pulsatile mass, non distended and no cva tenderness
Musculoskeletal Exam
Musculoskeletal Exam: full ROM and no edema
Skin Exam
Skin Exam: normal color, warm/dry, no rash and no petechia
Psychiatric Exam
Psychiatric Exam: normal mood/affect
Course
<ALEM Larson - Last Filed: 06/08/24 02:17>
Orders/Labs/Results
Orders:
Orders
06/07/24 22:43
Complete Blood Count/With Diff Urgent
Comprehensive Metabolic Panel Urgent
06/07/24 22:47
Urinalysis Urgent
Date Specimen was Collected: 06/07/24
Time Specimen was Collected: 21:53
Urine Microscopic Urgent
Date Specimen was Collected: 06/07/24
Time Specimen was Collected: 21:53
06/08/24 00:35
CT Abd/pel Without Iv Or Oral Urgent
Reason For Exam: Left flank pain
Abnormal Lab Results
06/07/24 06/07/24
22:43 22:47
MCH 33.2 H pg
(27.0-31.0)
Absolute Neuts (auto) 6.6 H 10^3/uL
(1.4-6.5)
Absolute Lymphs (auto) 0.9 L 10^3/uL
(1.2-3.4)
Absolute Monos (auto) 0.7 H 10^3/uL
(0.1-0.6)
Neutrophils % 78.2 H %
(42.2-75.2)
Lymphocytes % 11.2 L %
(20.5-51.1)
Glucose 108 H mg/dl
(70-99)
ALT 63 H U/L
(0-50)
Urine Occult Blood 1+ A
(Negative)
Urine RBC 26-30 A /HPF
(0-2)
06/07/24 22:43
06/07/24 22:43
Vital Signs
Initial and Last Documented VS:
Initial Vital Signs
Temp Pulse Resp BP Pulse Ox
97.5 F 70 30 166/96 99
06/07/24 21:49 06/07/24 21:49 06/07/24 21:49 06/07/24 21:49 06/07/24 21:49
Last Documented Vital Signs
Temp Pulse Resp BP Pulse Ox
97.5 F 70 30 166/96 99
06/07/24 21:49 06/07/24 21:49 06/07/24 21:49 06/07/24 21:49 06/07/24 21:49
<Cong Walls MD - Last Filed: 06/08/24 00:17>
Orders/Labs/Results
Orders:
Orders
06/07/24 22:43
Complete Blood Count/With Diff Urgent
Comprehensive Metabolic Panel Urgent
06/07/24 22:47
Urinalysis Urgent
Date Specimen was Collected: 06/07/24
Time Specimen was Collected: 21:53
Urine Microscopic Urgent
Date Specimen was Collected: 06/07/24
Time Specimen was Collected: 21:53
06/08/24 00:35
CT Abd/pel Without Iv Or Oral Urgent
Reason For Exam: Left flank pain
Abnormal Lab Results
06/07/24 06/07/24
22:43 22:47
MCH 33.2 H pg
(27.0-31.0)
Absolute Neuts (auto) 6.6 H 10^3/uL
(1.4-6.5)
Absolute Lymphs (auto) 0.9 L 10^3/uL
(1.2-3.4)
Absolute Monos (auto) 0.7 H 10^3/uL
(0.1-0.6)
Neutrophils % 78.2 H %
(42.2-75.2)
Lymphocytes % 11.2 L %
(20.5-51.1)
Glucose 108 H mg/dl
(70-99)
ALT 63 H U/L
(0-50)
Urine Occult Blood 1+ A
(Negative)
Urine RBC 26-30 A /HPF
(0-2)
06/07/24 22:43
06/07/24 22:43
Vital Signs
Initial and Last Documented VS:
Initial Vital Signs
Temp Pulse Resp BP Pulse Ox
97.5 F 70 30 166/96 99
06/07/24 21:49 06/07/24 21:49 06/07/24 21:49 06/07/24 21:49 06/07/24 21:49
Last Documented Vital Signs
Temp Pulse Resp BP Pulse Ox
97.5 F 70 30 166/96 99
06/07/24 21:49 06/07/24 21:49 06/07/24 21:49 06/07/24 21:49 06/07/24 21:49
<ALEM Larson - Last Filed: 06/08/24 02:17>
MDM/Problems Addressed
Differential Diagnosis Includes:
Renal calculus,
MDM/Problems Addressed:
This is a 64 year old male that comes in with c/o left flank pain. States that his pain was excruciating and he was on his knee's in triage. States that right know his pain is gone.
Will check labs and get CT scan.
Back into see patient. Explained that his CT is negative for any renal calculus but there is mildly dilated left ureter. This may have been that there was a stone and he passed it. Patient urine is negative for infection but there is only blood.
Patient to watch for any increased or changing pain, fever or any other concerns.
Chronic conditions affecting care:
Renal calculus,
Acute Exacerbation and/or Progression of Chronic Illness:
Renal calculus
<ALEM Larson - Last Filed: 06/08/24 02:17>
*Radiology
Radiology exam reviewed: radiology read reviewed (CT night hawk- Mildly dilated left ureter without obstructive uropathy, which may be due to a recently passed stone, microscopic calculi, or an ascending urinary tract infection. Prior
Cholecstectomy. Appendix is normal. No bowel obstructing or focal inflammation. NO free air or free fluid)
*Pulse Oximetry
Patient hypoxic: no
*EKG
Interpreted by ED Provider?: NA
Rate: EKG- N/A
*P[employer] A[employer]iliaries Supervisor Interpretation
Rate: [employer] Auxiliaries Supervisor- N/A
*Critical Care Note
Total Time (30-74mins, 75-104mins- exclusive of procedures): Not Applicable
ED Attending Note
<ALEM Larson - Last Filed: 06/08/24 02:17>
-
Portions of this chart may have been created with voice recognition software.� Occasional wrong word or��sound alike� substitutions may have occurred due to the inherent limitations of voice recognition software.
<Cong Walls MD - Last Filed: 06/08/24 00:17>
ED Attending Note
Patient seen and examined by attending physician: Yes
I performed the substantive portion of visit, reviewed & personally made and approve the management plan that is documented in note by myself or SOMMER.: Yes
ED Attending Note:
64-year-old male complaining of sudden onset of left flank pain. Shooting sharp in nature associated with nausea. Actually pain-free at this time. No fever chills or infectious symptoms.
On exam patient is nontoxic in no distress. Warm and dry. Perfusing well. Lungs clear and equal. No CVA tenderness. Abdomen is soft and nontender.
Impression very likely kidney stone. Hematuria. Sudden onset of pain. All consistent with stone. Highly doubt infectious issue. No fever no white count. Urinalysis negative for infection. Await CT scan for further care
Discharge Plan
Departure
Patient Disposition: Home (Routine Discharge)
Date of Disposition: 06/08/24
Time of Disposition: 02:13
Patient with high blood pressure during this ER visit?: Yes
Condition: Good
Covid-19: Not Applicable
Discharge Problem:
Renal colic on left side
Instructions: BLOOD PRESSURE
Prescriptions:
No Action
atorvastatin [Lipitor] 10 mg Tablet
10 mg PO DAILY
methotrexate sodium 2.5 mg Tablet
15 mg PO MO
folic acid 1 mg Tablet
1 mg PO DAILY
hydrochlorothiazide 25 mg Tablet
25 mg PO DAILY
metoprolol succinate [Toprol XL] 25 mg Tablet Extended Release 24 Hr
75 mg PO DAILY
cyanocobalamin (vitamin B-12) 500 mcg Tablet
500 mcg PO DAILY
acetaminophen 325 mg tablet
650 mg PO Q4HPRN PRN (Reason: mild pain) Qty: 1 0RF
ibuprofen 200 mg tablet
400 - 600 mg PO Q6HPRN PRN (Reason: moderate pain) Qty: 1 0RF
oxycodone 5 mg tablet
5 mg PO Q4HPRN PRN (Reason: breakthrough/severe pain) Qty: 10 0RF
Referrals:
Carlyle Levin IV, MD [Family Provider] -
Activity Restrictions/Additional Instructions:
As discussed, your blood work shows that your ALT is mildly elevated. Your urine is negative for infection but there was blood. Your CT shows that you have a little dilation of the left ureter which may be due to a passed stone. Please increase your
water intake to 8-8oz glasses daily. IF YOU HAVE INCREASED OR CHANGING PAIN, FEVER, OR YOU HAVE ANY OTHER CONCERNS PLEASE RETURN TO THE EMERGENCY ROOM.
Interventions
Interventions:
*Risk Screen - Suicide Last Done: 06/07/24 22:32
*General Assessment Last Done: 06/07/24 22:32
ED- Fall Risk Assessment Last Done: 06/07/24 22:32
*ED COVID-19 Vaccine History Last Done: 06/07/24 22:32
KX-[place]-Ewprnbobit Assessment Last Done: 06/07/24 22:32
ED-Male Genitourinary Assessment Last Done: 06/07/24 22:32
Discharge Date and Time
Print Language: CUBAN
[2024-06-07 23:08] LABS: ALT (SGPT) 63 U/L (0-50); AST (SGOT) 46 U/L (17-59); Albumin 4.6 g/dl (3.5-5.0); Alkaline Phosphatase 69 U/L (38-126); Blood Urea Nitrogen 18 mg/dl (9-20); Calcium 9.8 mg/dl (8.4-10.2); Carbon Dioxide 24 mmol/L (22-30); Chloride 103 mmol/L (98-107); Estimated Creatinine Clearance 71 ml/min; Glucose 108 mg/dl (70-99); Potassium 3.7 mmol/L (3.5-5.1); Sodium 139 mmol/L (135-145); Total Bilirubin 0.7 mg/dl (0.2-1.3); Total Protein 6.8 g/dl (6.3-8.2); eGFR > 60.00
[2024-06-07 23:18] LABS: Urine Red Blood Cell 26-30 /HPF (0-2); Urine Squamous Cell 0-2 /LPF (Few); Urine White Cell 0-2 /HPF (0-5)
[2024-06-08 02:52] VITALS: BP 132/80
== END 2024-06-08 02:53 | disposition home or self-care (01) ==
LOC: EMR 21:41
PROVIDERS: Emergency Medicine; EMERGENCY PHYSICIAN Emergency Medicine; FAMILY PHYSICIAN Family Medicine
DX: N23 Unspecified renal colic (principal); I10 Essential (primary) hypertension; E78.00 Pure hypercholesterolemia, unspecified; Z87.442 Personal history of urinary calculi; Z90.49 Acquired absence of other specified parts of digestive tract
CPT/HCPCS: 99284; 74176; 80053; 81003; 81015; 85025